=== PATIENT | female | born 1950 | race Caucasian/White ===

== ENCOUNTER → 2018-11-09 | Day surgery (SDC) | payer MEDICARE, MEDICAID ==
[~2018-11-09] MED LIST: IV RINGERS,LACTATED 1000ML 1,000 ML IV SCH; LOPE2TAB27 PO; PROPOFOL 20 ML IV ONE; SODIUM PHOSPHATES 19/7GM 133 ML ENEMA. ONE; SODIUM PHOSPHATES 19/7GM 133 ML ENEMA. PR ONE
[2018-11-09 13:48] VITALS: BP 200/91
--- NOTE | 2018-11-13 17:08 | PATHOLOGY ---
[facility] Accession Number: [id number] . 01 Material submitted: . PART A: DUODENAL BIOPSY PART B: RANDOM COLON BIOPSY . 01 Clinical history: . Pre-OP DX: Weight loss, diarrhea Post-OP DX: Rule out celiac . 02 Diagnosis: A. Duodenal biopsy: - Preserved villous architecture with increased intraepithelial lymphocytes. See comment. . B. Colonic mucosa, random colon biopsy: - No significant pathologic abnormalities. . (JPM:tracey; 11/13/2018) MBR/11/13/2018 . 02 Comment: Sections of the duodenal biopsy reveal segments of duodenal and small intestine mucosa. The villous architecture is preserved. The mucosal villi show focally increased intraepithelial lymphocytes. The differential diagnosis includes celiac disease, bacterial overgrowth, non-steroidal anti-inflammatory drug damage, reaction to Helicobacter pylori infection, tropical sprue, and chronic inflammatory bowel disease. Correlate clinically. . Sections of the random colon biopsy reveal multiple segments of colonic mucosa. There is no evidence of a chronic destructive colitis, lymphocytic colitis, or collagenous colitis. . (JPM:tracey; 11/13/2018) . 02 Electronically signed: . Trell Amaya MD, Pathologist NPI- [id number] . 01 Gross description: . A. Received in formalin labeled "Consuelo Ackerman, duodenal BX," are multiple segments of pinon soft tissue measuring 1.8 x 0.5 x 0.1 cm in aggregate dimensions. The specimen is filtered and entirely submitted in cassette A1. . B. Received in formalin labeled "Consuelo Ackerman, random colon BX," are multiple segments of pinon soft tissue measuring 2.0 x 0.4 x 0.1 cm in aggregate dimensions. The specimen is filtered and entirely submitted in cassette B1. (TSD; 11/10/2018) TOB/TOB . 02 Pathologist provided ICD-10: R19.7, R63.4 . 02 CPT . 301682, 147353 Specimen Comment: A courtesy copy of this report has been sent to Specimen Comment: [phone], . Specimen Comment: Report sent to / DR CHAPPELL Performed at: 01 [facility] [address], [place] [id number] MD Bob Anderson MD Phone: [phone] Performed at: 02 [facility] [address] [place], [place] [id number] MD Trell Amaya MD Phone: [phone]
== END | disposition home or self-care (01) ==
LOC: SURG 11:34
PROVIDERS: ATTEND Internal Medicine Gastroenterology
DX: K57.30 Diverticulosis of large intestine without perforation or abscess without bleeding (principal); K31.89 Other diseases of stomach and duodenum; K64.0 First degree hemorrhoids; K63.89 Other specified diseases of intestine; M19.90 Unspecified osteoarthritis, unspecified site; Z88.8 Allergy status to other drugs, medicaments and biological substances; Z88.6 Allergy status to analgesic agent; Z91.040 Latex allergy status; Z82.49 Family history of ischemic heart disease and other diseases of the circulatory system; Z82.3 Family history of stroke; Z83.71 Family history of colonic polyps; Z72.0 Tobacco use; Z98.51 Tubal ligation status; Z90.710 Acquired absence of both cervix and uterus
CPT/HCPCS: 43239; 45380; 88305; J2704

== ENCOUNTER → 2020-09-03 | Outpatient (CLI) | payer MEDICARE, MEDICAID ==
[2018-11-09 13:48] VITALS: BP 200/91
[~2020-09-03] MED LIST changes: -IV RINGERS,LACTATED 1000ML 1,000 ML IV SCH; -PROPOFOL 20 ML IV ONE; -SODIUM PHOSPHATES 19/7GM 133 ML ENEMA. ONE; -SODIUM PHOSPHATES 19/7GM 133 ML ENEMA. PR ONE
--- NOTE | 2020-09-03 16:08 | KCIC ---
EXAMINATION: Magnetic resonance imaging (MRI) of the cervical spine without contrast 09/03/2020 2:45 P M HISTORY: Degenerative disc disease of the cervical region. Neck pain with limited range of motion. TECHNIQUE: Multiplanar multi-weighted MRI of the cervical spine was performed without intravenous con trast using the standard cervical spine protocol. Contrast information: None administered COMPARISON: CT cervical spine 08/28/2020 FINDINGS: There is reversal the normal cervical lordosis centered at C5-C6. Vertebral body heights are maintain ed. There is marrow edema involving the anterior C2 vertebral body at the atlantoaxial articulation w hich may represent bone contusion. Mild edema is identified involving the anterior arch of C1. No def inite fracture is identified on comparison CT, although findings to correspond to an area of sclerosi s. There is endplate edema identified at C5-C6 and C6-C7. No prevertebral edema is identified. There is no disruption the posterior ligamentous complex. There is moderate disc height loss at C5-C6 and C 6-C7 mild disc height loss at C4-C5. There is disc desiccation at all levels of the cervical spine. P osterior fossa is normal in appearance. Vertebral artery flow voids are maintained. Skull base is int act. Sella is intact. C2-C3: Disc is normal in configuration. Moderate left facet arthropathy. Mild left neural foraminal s tenosis. No spinal canal stenosis. C3-C4: There is a mild disc bulge. Moderate left and moderate facet arthropathy. Mild uncovertebral j oint disease. Mild to moderate left foraminal stenosis. No spinal canal stenosis. C4-C5: There is a posterior disc osteophyte complex. Is a central disc protrusion. There is severe le ft and mild right facet arthropathy. Moderate uncovertebral joint disease. Moderate to severe left an d [id number] right neural foraminal stenosis. Mild spinal canal stenosis without deformity of t he cord or cord signal alteration. C5-C6: There is a posterior disc osteophyte complex. Mild facet arthropathy. Severe right and moderat e left uncovertebral joint disease. Severe right and moderate left neuroforaminal stenosis. There is mild to moderate spinal canal stenosis with mild deformity of the cord. No cord signal alteration. C6-C7: There is a posterior disc osteophyte complex. Mild facet arthropathy. Moderate to advanced unc overtebral joint disease. Severe left and moderate right neuroforaminal stenosis. Moderate spinal can al stenosis. C7-T1: Disc is normal in configuration. No neuroforaminal or spinal canal stenosis. IMPRESSION: 1. There is edema involving the anterior arch of C1 and ventral dens. Consideration may be given for contusive changes versus degenerative arthropathy. No acute fracture is identified on comparison CT o f the cervical spine. 2. Moderate cervical spondylosis, as described in detail above. Electronically signed by: Eunice Millard MD (09/03/2020 4:06 PM) [id number]
== END ==
LOC: KCIC MRI 14:16
PROVIDERS: ATTEND Physician Assistant
DX: M47.812 Spondylosis without myelopathy or radiculopathy, cervical region (principal); M25.78 Osteophyte, vertebrae; M48.02 Spinal stenosis, cervical region; R60.9 Edema, unspecified
CPT/HCPCS: 72141

== ENCOUNTER → 2021-03-12 | Outpatient (CLI) | payer MEDICAID, MEDICARE ==
[2018-11-09 13:48] VITALS: BP 200/91
--- NOTE | 2021-03-12 13:42 | KCIC ---
Examination: MRI right shoulder without contrast HISTORY: History of right shoulder pain, instability, limited range of motion COMPARISON: None available TECHNIQUE: Multiplanar multisequence MR imaging of the right shoulder without contrast Findings: The long head of the biceps tendon within the bicipital groove. The attachment of the long head the b iceps tendon to the superior labral anchor grossly appears intact. The attachment of the subscapulari s tendon, supraspinatus, infraspinatus tendon grossly appears intact. Probable small Hill-Sachs lesio n identified with mild trabecular edema in the posterior lateral humerus head. Mild increased T2 sign al identified in the anterior portion of the supraspinatus tendon. Minimal increased T2 signal identi fied in the anterior inferior glenoid with questionable small chondral defect identified at anterior inferior chondrolabral region. There is minimal amount of fluid identified in subacromial subdeltoid bursa. The visualized labrum grossly appears unremarkable. The muscle bulk grossly appears unremarkab le. Fat is present within the rotator interval. Mild degenerative changes acromioclavicular joint. IMPRESSION: 1. Probable small Hill-Sachs lesion identified with mild trabecular edema in the posterior lateral h umerus head. 2. Minimal increased T2 signal identified in the anterior inferior glenoid with questionable small c hondral defect identified at the anterior inferior chondrolabral region. Consider MR arthrogram for f urther evaluation. 3. Mild increased T2 signal identified in the anterior portion of the supraspinatus tendon likely te ndinosis. Electronically signed by: Alex Goff MD (03/12/2021 1:39 PM) [id number]
== END ==
LOC: KCIC MRI 12:22
PROVIDERS: ATTEND Orthopaedic Surgery
DX: M19.011 Primary osteoarthritis, right shoulder (principal); M25.311 Other instability, right shoulder; M25.811 Other specified joint disorders, right shoulder
CPT/HCPCS: 73221